=== PATIENT | female | born 1955 | race Caucasian/White ===

== ENCOUNTER 2017-02-15 17:32 | Emergency (ER) | payer OTHER ==
[~2017-02-15] VITALS: Wt 57.6 kg
[~2017-02-15 17:32] MED LIST: COMPAZINE10 MG PO; DARVOCET N PO; LEVOTHYROXIN0.088 M1 PO; NAPROSYN500 MG PO; PREDNICOT10 MG PO; SEPTRA DS 800 M1 TAB PO; SYNTHROID0.05 MG PO; ULTRAM50 MG PO; VENTOLIN H0.09 MG/AC INH; VIBRAMYCIN100 MG PO; VICODIN 500 MG-1 TAB PO
[2017-02-15 17:37] VITALS: BP 147/91
[2017-02-15] MEDS ORDERED: NORCO 5-325 TA1 EACH PO (18:47)
[2017-02-15] MEDS ORDERED: NAPROSYN500 MG PO (18:47)
[2017-02-15] MEDS ORDERED: CYCLOBENZAPRINE5 M3 PO (18:47)
== END 2017-02-15 19:21 | disposition home or self-care (01) ==
LOC: ED 17:32
DX: S16.1XXA Strain of muscle, fascia and tendon at neck level, initial encounter (principal); S30.0XXA Contusion of lower back and pelvis, initial encounter; Z98.51 Tubal ligation status; Z79.899 Other long term (current) drug therapy; Z88.1 Allergy status to other antibiotic agents; W10.8XXA Fall (on) (from) other stairs and steps, initial encounter; Y93.89 Activity, other specified; Y92.099 Unspecified place in other non-institutional residence as the place of occurrence of the external cause; Y99.9 Unspecified external cause status

== ENCOUNTER → 2017-09-26 | Outpatient (CLI) | payer OTHER ==
[~2017-09-26] MED LIST changes: +CYCLOBENZAPRINE5 M3 PO; +NORCO 5-325 TA1 EACH PO
== END | disposition home or self-care (01) ==
LOC: RAD 19:28
DX: M25.561 Pain in right knee (principal)

== ENCOUNTER → 2017-09-30 | Outpatient (CLI) | payer OTHER ==
[2017-10-01 15:11] LABS: ENDOMYSIAL ANTIBODY IgA Negative (Negative)
[2017-10-01 16:27] LABS: t-TRANSGLUTAMINASE (tTG) IGA <2 U/mL (0-3); t-TRANSGLUTAMINASE (tTG) IgG <2 U/mL (0-5)
[2017-10-07 18:04] LABS: FATS, NEUTRAL Normal (.); FATS, TOTAL Normal (.)
== END | disposition home or self-care (01) ==
LOC: LAB 14:08
DX: R19.7 Diarrhea, unspecified (principal)

== ENCOUNTER → 2017-10-08 | Outpatient (CLI) | payer OTHER | END | disposition home or self-care (01) | LOC: MAMMO 02:55 | DX: Z12.39 Encounter for other screening for malignant neoplasm of breast (principal) ==

== ENCOUNTER → 2019-02-23 | Outpatient (CLI) | payer OTHER | END | disposition home or self-care (01) | LOC: MAMMO 14:41 | DX: Z12.31 Encounter for screening mammogram for malignant neoplasm of breast (principal); N64.89 Other specified disorders of breast ==

== ENCOUNTER 2019-11-25 12:02 | Emergency (ER) | payer OTHER ==
[~2019-11-25] VITALS: Ht 154.9 cm; Wt 62.1 kg
[2019-11-25 12:10] VITALS: BP 188/90
[2019-11-25] MEDS ORDERED: PREDNISONE20 M1 PO (13:31)
== END 2019-11-25 15:13 | disposition home or self-care (01) ==
LOC: ED 12:02
DX: T63.441A Toxic effect of venom of bees, accidental (unintentional), initial encounter (principal); Z88.1 Allergy status to other antibiotic agents; Z79.899 Other long term (current) drug therapy; Y92.89 Other specified places as the place of occurrence of the external cause

== ENCOUNTER → 2020-11-02 | Outpatient (CLI) | payer OTHER ==
[~2020-11-02] MED LIST changes: +PREDNISONE20 M1 PO
== END | disposition home or self-care (01) ==
LOC: RAD 13:22
PROVIDERS: ATTEND Nurse Practitioner Family
DX: M25.552 Pain in left hip (principal)

== ENCOUNTER 2021-07-01 17:41 | Inpatient (IN) | payer OTHER ==
[~2021-07-01] VITALS: Ht 154.9 cm; Wt 62.1 kg
[2021-07-01 17:49] VITALS: BP 129/99
[2021-07-01] MEDS ORDERED: FLUOXETINE HCL40 MG PO (17:50)
[2021-07-01] MEDS ORDERED: OMEPRAZOLE MAGN20 MG PO (17:51)
[2021-07-01] MEDS ORDERED: LEVOTHYROXINE112 MCG PO (17:51)
[2021-07-01] MEDS ORDERED: DOXYCYCLINE HY100 M3 PO (17:52)
[2021-07-01] MEDS ORDERED: LOSARTAN-HCTZ1 EAC1 PO (17:52)
[2021-07-01 18:54] LABS: HEMATOCRIT 36.9 % (37.0-47.0); MEAN CELL VOLUME 84.6 fl (81.0-99.0); MEAN CORPUSCULAR HGB 29.6 pg (27.0-31.0); PLATELET COUNT AUTOMATED 381 10*3/uL (130-400); RED BLOOD COUNT 4.36 10*6/uL (4.10-5.10); RED CELL DISTRI WIDTH 13.4 % (0-14.5); WHITE BLOOD COUNT 16.3 10*3/uL (4.8-10.8)
[2021-07-01 18:56] LABS: MANUAL DIFF REFLEX YES
[2021-07-01 19:09] LABS: ACT PARTIAL THROMBO TIME 30.9 SECONDS (20.0-32.1); INTERNATIONAL NORM RATIO 1.1 (2.0-3.5)
[2021-07-01 19:20] LABS: PLATELET SUFFICIENCY NORMAL (NORMAL); TOTAL CELLS COUNTED 100 #CELLS
[2021-07-01 19:21] LABS: CREATININE 2.18 mg/dL (0.55-1.02); TOTAL PROTEIN 6.8 gm/dL (6.4-8.2)
[2021-07-01 19:54] LABS: THYROID STIM HORMONE (HS) 2.03 uIU/ml (0.358-4.75)
[2021-07-01 20:06] LABS: BILIRUBIN 1+ (Negative); BLOOD Trace-Lysed (Negative); CLARITY Turbid (Clear); COLOR Dark Yellow (Yellow); GLUCOSE Trace (Negative); KETONE Trace (Negative); LEUKO ESTERASE 1+ (Negative); NITRITE Negative (Negative)
[2021-07-01 20:22] LABS: BACTERIA 4+; EPITHELIAL CELLS 21-30
[2021-07-01 20:23] LABS: WBC 16-20 wbc/hpf (0-5)
[2021-07-01 21:52] VITALS: BP 119/72
[2021-07-02] VITALS: BP 110/50
[2021-07-02 04:18] LABS: BASO % 0.3 % (0.0-1.0); EOS # 0.1 10*3/uL (0.0-0.4); EOS % 0.9 % (1.0-4.0); HEMATOCRIT 36.6 % (37.0-47.0); LYMPH # 1.5 10*3/uL (1.3-4.4); LYMPH % 9.8 % (27.0-41.0); MEAN CELL VOLUME 87.4 fl (81.0-99.0); MEAN CORPUSCULAR HGB 30.1 pg (27.0-31.0); MEAN CORPUSCULAR HGB CONC 34.4 g/dl (33.0-37.0); MEAN PLATELET VOLUME 8.9 fl (9.6-12.3); MONO # 1.5 10*3/uL (0.1-1.0); MONO % 9.7 % (3.0-9.0); NEUT % 78.9 % (47.0-73.0); PLATELET COUNT AUTOMATED 299 10*3/uL (130-400); RED BLOOD COUNT 4.19 10*6/uL (4.10-5.10); RED CELL DISTRI WIDTH 13.6 % (0-14.5); WHITE BLOOD COUNT 15.2 10*3/uL (4.8-10.8)
[2021-07-02 04:30] LABS: CREATININE 2.46 mg/dL (0.55-1.02); POTASSIUM 2.5 mmol/L (3.5-5.1)
[2021-07-02 08:00] VITALS: BP 100/51
[2021-07-02 11:00] VITALS: BP 98/53
[2021-07-02 16:00] VITALS: BP 120/67
[2021-07-02 20:00] VITALS: BP 151/63
[2021-07-03] VITALS: BP 148/86
[2021-07-03 05:58] LABS: BASO % 0.3 % (0.0-1.0); EOS # 0.1 10*3/uL (0.0-0.4); EOS % 1.3 % (1.0-4.0); HEMATOCRIT 36.4 % (37.0-47.0); LYMPH # 1.8 10*3/uL (1.3-4.4); LYMPH % 17.2 % (27.0-41.0); MEAN CELL VOLUME 87.9 fl (81.0-99.0); MEAN CORPUSCULAR HGB 30.2 pg (27.0-31.0); MEAN CORPUSCULAR HGB CONC 34.3 g/dl (33.0-37.0); MEAN PLATELET VOLUME 9.3 fl (9.6-12.3); MONO # 0.9 10*3/uL (0.1-1.0); MONO % 8.9 % (3.0-9.0); NEUT # 7.5 10*3/uL (2.3-7.9); NEUT % 71.9 % (47.0-73.0); PLATELET COUNT AUTOMATED 340 10*3/uL (130-400); RED BLOOD COUNT 4.14 10*6/uL (4.10-5.10); RED CELL DISTRI WIDTH 13.6 % (0-14.5); WHITE BLOOD COUNT 10.4 10*3/uL (4.8-10.8)
[2021-07-03 06:02] LABS: CREATININE 1.58 mg/dL (0.55-1.02)
[2021-07-03 06:10] LABS: POTASSIUM 2.2 mmol/L (3.5-5.1)
[2021-07-03 08:00] VITALS: BP 132/74
[2021-07-03 12:00] VITALS: BP 97/54
[2021-07-03 12:06] LABS: CREATININE 1.63 mg/dL (0.55-1.02); POTASSIUM 2.7 mmol/L (3.5-5.1)
[2021-07-03 16:00] VITALS: BP 109/57; BP 123/65
[2021-07-03 20:00] VITALS: BP 96/56
[2021-07-04] VITALS: BP 121/79
[2021-07-04 06:12] LABS: BASO % 0.3 % (0.0-1.0); EOS # 0.2 10*3/uL (0.0-0.4); EOS % 2.2 % (1.0-4.0); HEMATOCRIT 34.1 % (37.0-47.0); LYMPH # 1.9 10*3/uL (1.3-4.4); LYMPH % 25.9 % (27.0-41.0); MEAN CELL VOLUME 88.1 fl (81.0-99.0); MEAN CORPUSCULAR HGB 29.7 pg (27.0-31.0); MEAN CORPUSCULAR HGB CONC 33.7 g/dl (33.0-37.0); MEAN PLATELET VOLUME 9.5 fl (9.6-12.3); MONO # 0.9 10*3/uL (0.1-1.0); MONO % 12.1 % (3.0-9.0); NEUT # 4.4 10*3/uL (2.3-7.9); NEUT % 59.4 % (47.0-73.0); PLATELET COUNT AUTOMATED 334 10*3/uL (130-400); RED BLOOD COUNT 3.87 10*6/uL (4.10-5.10); RED CELL DISTRI WIDTH 13.5 % (0-14.5); WHITE BLOOD COUNT 7.4 10*3/uL (4.8-10.8)
[2021-07-04 06:22] LABS: CREATININE 1.31 mg/dL (0.55-1.02)
[2021-07-04 06:51] LABS: POTASSIUM 4.2 mmol/L (3.5-5.1)
[2021-07-04 08:00] VITALS: BP 151/75
[2021-07-04 12:00] VITALS: BP 116/86
== END 2021-07-04 15:56 | disposition home or self-care (01) | DRG 463 ==
LOC: ED 17:41 → 5E 21:03 → EDHOLD 21:03 → 5E 21:22
PROVIDERS: Emergency Medicine; Family Medicine; Hospitalist; Internal Medicine; Internal Medicine Nephrology; Student in an Organized Health Care Education/Training Program; ADMIT Internal Medicine; ATTEND Internal Medicine
DX: N39.0 Urinary tract infection, site not specified (principal); E43 Unspecified severe protein-calorie malnutrition; N17.0 Acute kidney failure with tubular necrosis; E87.1 Hypo-osmolality and hyponatremia; K27.9 Peptic ulcer, site unspecified, unspecified as acute or chronic, without hemorrhage or perforation; R31.9 Hematuria, unspecified; R73.9 Hyperglycemia, unspecified; N18.4 Chronic kidney disease, stage 4 (severe); E83.42 Hypomagnesemia; F32.A Depression, unspecified; E03.9 Hypothyroidism, unspecified; E87.6 Hypokalemia; F17.210 Nicotine dependence, cigarettes, uncomplicated; I12.9 Hypertensive chronic kidney disease with stage 1 through stage 4 chronic kidney disease, or unspecified chronic kidney disease; Z82.49 Family history of ischemic heart disease and other diseases of the circulatory system; Z82.5 Family history of asthma and other chronic lower respiratory diseases; Z71.6 Tobacco abuse counseling; Z88.1 Allergy status to other antibiotic agents; Z88.8 Allergy status to other drugs, medicaments and biological substances; Z79.899 Other long term (current) drug therapy; Z79.51 Long term (current) use of inhaled steroids; Z68.25 Body mass index [BMI] 25.0-25.9, adult

== ENCOUNTER 2021-08-16 11:52 | Inpatient (IN) | payer OTHER ==
[~2021-08-16] VITALS: Ht 154.9 cm; Wt 62.6 kg
[~2021-08-16 11:52] MED LIST changes: +DOXYCYCLINE HY100 M3 PO; +FLUOXETINE HCL40 MG PO; +LEVOTHYROXINE112 MCG PO; +LOSARTAN-HCTZ1 EAC1 PO; +OMEPRAZOLE MAGN20 MG PO
[2021-08-16 12:01] VITALS: BP 113/76
[2021-08-16 12:28] LABS: BASO % 0.2 % (0.0-1.0); EOS # 0.1 10*3/uL (0.0-0.4); EOS % 0.9 % (1.0-4.0); LYMPH # 1.9 10*3/uL (1.3-4.4); LYMPH % 17.1 % (27.0-41.0); MEAN CELL VOLUME 87.4 fl (81.0-99.0); MEAN CORPUSCULAR HGB 30.1 pg (27.0-31.0); MEAN CORPUSCULAR HGB CONC 34.5 g/dl (33.0-37.0); MONO # 1.2 10*3/uL (0.1-1.0); MONO % 11.2 % (3.0-9.0); NEUT # 7.6 10*3/uL (2.3-7.9); NEUT % 70.1 % (47.0-73.0); PLATELET COUNT AUTOMATED 365 10*3/uL (130-400); RED BLOOD COUNT 4.35 10*6/uL (4.10-5.10); RED CELL DISTRI WIDTH 14.4 % (0-14.5); WHITE BLOOD COUNT 10.9 10*3/uL (4.8-10.8)
[2021-08-16 12:47] LABS: ALKALINE PHOSPHATASE 77 U/L (45-117); BUN 11 mg/dl (7-24); CHLORIDE 106 mmol/L (98-107); CREATININE 1.07 mg/dL (0.55-1.02); LIPASE 210 U/L (73-393); POTASSIUM 2.6 mmol/L (3.5-5.1); SGOT/AST 15 IU/L (3-35); SGPT/ALT 20 U/L (12-78); SODIUM 141 mmol/L (136-145); TOTAL PROTEIN 6.8 gm/dL (6.4-8.2)
[2021-08-16 14:00] VITALS: BP 114/76
[2021-08-16 14:05] LABS: BILIRUBIN Negative (Negative); BLOOD Negative (Negative); CLARITY Clear (Clear); COLOR Yellow (Yellow); GLUCOSE Negative (Negative); KETONE Negative (Negative); LEUKO ESTERASE Negative (Negative); NITRITE Negative (Negative); UROBILINOGEN 0.2 E.U./dl (0.0-1.0)
[2021-08-16 14:25] LABS: BACTERIA 1+; EPITHELIAL CELLS 31-40; RBC 0-2 rbc/hpf (0-2); WBC 0-2 wbc/hpf (0-5)
[2021-08-16 16:10] VITALS: BP 112/74
[2021-08-16 18:14] VITALS: BP 112/74
[2021-08-16 18:38] VITALS: BP 141/94
[2021-08-16] MEDS ORDERED: LOSARTAN POTASS25 M1 PO (18:53)
[2021-08-16] MEDS ORDERED: AMLODIPINE BESYL5 MG PO (18:53)
[2021-08-16 19:53] LABS: BUN 9 mg/dl (7-24); CHLORIDE 111 mmol/L (98-107); CREATININE 0.87 mg/dL (0.55-1.02); SODIUM 143 mmol/L (136-145)
[2021-08-16 20:00] VITALS: BP 141/94
[2021-08-17] VITALS: BP 95/42
[2021-08-17 01:04] LABS: BUN 8 mg/dl (7-24); CHLORIDE 108 mmol/L (98-107); CREATININE 0.89 mg/dL (0.55-1.02); POTASSIUM 3.1 mmol/L (3.5-5.1); SODIUM 140 mmol/L (136-145)
[2021-08-17 06:12] LABS: BASO % 0.3 % (0.0-1.0); EOS # 0.1 10*3/uL (0.0-0.4); EOS % 1.5 % (1.0-4.0); HEMATOCRIT 34.2 % (37.0-47.0); LYMPH # 1.8 10*3/uL (1.3-4.4); LYMPH % 23.8 % (27.0-41.0); MEAN CELL VOLUME 89.3 fl (81.0-99.0); MEAN CORPUSCULAR HGB CONC 33.6 g/dl (33.0-37.0); MEAN PLATELET VOLUME 9.6 fl (9.6-12.3); MONO # 0.8 10*3/uL (0.1-1.0); MONO % 10.7 % (3.0-9.0); NEUT # 4.8 10*3/uL (2.3-7.9); NEUT % 63.4 % (47.0-73.0); PLATELET COUNT AUTOMATED 338 10*3/uL (130-400); RED BLOOD COUNT 3.83 10*6/uL (4.10-5.10); RED CELL DISTRI WIDTH 14.5 % (0-14.5); WHITE BLOOD COUNT 7.5 10*3/uL (4.8-10.8)
[2021-08-17 06:16] LABS: ALKALINE PHOSPHATASE 68 U/L (45-117); BUN 7 mg/dl (7-24); CHLORIDE 109 mmol/L (98-107); CREATININE 0.89 mg/dL (0.55-1.02); POTASSIUM 2.8 mmol/L (3.5-5.1); SGOT/AST 16 IU/L (3-35); SGPT/ALT 17 U/L (12-78); SODIUM 140 mmol/L (136-145); TOTAL PROTEIN 5.9 gm/dL (6.4-8.2)
[2021-08-17 08:00] VITALS: BP 100/74
[2021-08-17 12:00] VITALS: BP 100/80
[2021-08-17 16:00] VITALS: BP 142/72
[2021-08-17 16:03] LABS: BUN 8 mg/dl (7-24); CHLORIDE 110 mmol/L (98-107); CREATININE 0.91 mg/dL (0.55-1.02); POTASSIUM 3.5 mmol/L (3.5-5.1); SODIUM 140 mmol/L (136-145)
== END 2021-08-17 18:31 | disposition home or self-care (01) | DRG 469 ==
LOC: ED 11:52 → 4E 14:06 → EDHOLD 14:06 → 4E 18:12
PROVIDERS: Internal Medicine; Physician Assistant; ADMIT Internal Medicine; ATTEND Internal Medicine
DX: N17.0 Acute kidney failure with tubular necrosis (principal); E87.8 Other disorders of electrolyte and fluid balance, not elsewhere classified; E83.51 Hypocalcemia; F17.210 Nicotine dependence, cigarettes, uncomplicated; E44.0 Moderate protein-calorie malnutrition; K27.9 Peptic ulcer, site unspecified, unspecified as acute or chronic, without hemorrhage or perforation; E83.42 Hypomagnesemia; E87.6 Hypokalemia; R73.9 Hyperglycemia, unspecified; I10 Essential (primary) hypertension; F32.A Depression, unspecified; E03.9 Hypothyroidism, unspecified; M54.32 Sciatica, left side; I44.0 Atrioventricular block, first degree; Z68.26 Body mass index [BMI] 26.0-26.9, adult; Z71.6 Tobacco abuse counseling; Z88.1 Allergy status to other antibiotic agents; Z88.8 Allergy status to other drugs, medicaments and biological substances; Z79.51 Long term (current) use of inhaled steroids; Z79.899 Other long term (current) drug therapy

== ENCOUNTER → 2021-10-01 | Outpatient (CLI) | payer OTHER ==
[~2021-10-01] MED LIST changes: +AMLODIPINE BESYL5 MG PO; +LOSARTAN POTASS25 M1 PO
== END | disposition home or self-care (01) ==
LOC: MAMMO 09-13 10:00
PROVIDERS: ATTEND Nurse Practitioner Family
DX: Z12.31 Encounter for screening mammogram for malignant neoplasm of breast (principal)

== ENCOUNTER 2021-10-10 22:17 | Emergency (ER) | payer OTHER ==
[~2021-10-10] VITALS: Ht 160 cm; Wt 59.0 kg
[2021-10-10 22:29] VITALS: BP 163/91
[2021-10-10] MEDS ORDERED: PERCOCET 5-3251 EACH PO (22:49)
[2021-10-10] MEDS ORDERED: ANTIBIOTIC28.4 GM T (22:49)
== END 2021-10-10 22:47 | disposition home or self-care (01) ==
LOC: ED 22:17
DX: T23.132A Burn of first degree of multiple left fingers (nail), not including thumb, initial encounter (principal); F12.90 Cannabis use, unspecified, uncomplicated; Z98.51 Tubal ligation status; Z79.899 Other long term (current) drug therapy; Z88.1 Allergy status to other antibiotic agents; X13.1XXA Other contact with steam and other hot vapors, initial encounter; Y93.89 Activity, other specified; Y92.89 Other specified places as the place of occurrence of the external cause; Y99.9 Unspecified external cause status

== ENCOUNTER 2021-10-17 18:27 | Emergency (ER) | payer OTHER ==
[~2021-10-17 18:27] MED LIST changes: +ANTIBIOTIC28.4 GM T; +PERCOCET 5-3251 EACH PO
[2021-10-17 18:48] VITALS: BP 148/78
== END 2021-10-17 22:35 | disposition home or self-care (01) ==
LOC: ED 18:27
DX: S40.011A Contusion of right shoulder, initial encounter (principal); S70.01XA Contusion of right hip, initial encounter; S80.01XA Contusion of right knee, initial encounter; M25.421 Effusion, right elbow; F12.90 Cannabis use, unspecified, uncomplicated; Z98.890 Other specified postprocedural states; Z98.51 Tubal ligation status; Z79.899 Other long term (current) drug therapy; Z88.1 Allergy status to other antibiotic agents; W01.198A Fall on same level from slipping, tripping and stumbling with subsequent striking against other object, initial encounter; Y93.01 Activity, walking, marching and hiking; Y92.89 Other specified places as the place of occurrence of the external cause; Y99.9 Unspecified external cause status

== ENCOUNTER 2022-02-20 16:46 | Emergency (ER) | payer OTHER ==
[~2022-02-20] VITALS: Ht 154.9 cm; Wt 63.5 kg
[2022-02-20 17:31] VITALS: BP 89/64
[2022-02-20 18:05] LABS: BASO % 0.3 % (0.0-1.0); EOS % 0.3 % (1.0-4.0); HEMATOCRIT 36.6 % (37.0-47.0); LYMPH # 1.8 10*3/uL (1.3-4.4); LYMPH % 15.2 % (27.0-41.0); MEAN CELL VOLUME 88.8 fl (81.0-99.0); MEAN CORPUSCULAR HGB 29.9 pg (27.0-31.0); MEAN CORPUSCULAR HGB CONC 33.6 g/dl (33.0-37.0); MEAN PLATELET VOLUME 9.7 fl (9.6-12.3); MONO # 1.3 10*3/uL (0.1-1.0); MONO % 11.2 % (3.0-9.0); NEUT # 8.5 10*3/uL (2.3-7.9); NEUT % 72.7 % (47.0-73.0); PLATELET COUNT AUTOMATED 332 10*3/uL (130-400); RED BLOOD COUNT 4.12 10*6/uL (4.10-5.10); RED CELL DISTRI WIDTH 13.3 % (0-14.5); WHITE BLOOD COUNT 11.7 10*3/uL (4.8-10.8)
[2022-02-20 18:28] LABS: ALKALINE PHOSPHATASE 73 U/L (46-116); BUN 14 mg/dl (9-23); CHLORIDE 97 mmol/L (98-107); CREATININE 1.09 mg/dL (0.55-1.02); LIPASE 39 U/L (12-53); POTASSIUM 2.8 mmol/L (3.4-5.1); SGPT/ALT 14 U/L (10-49); SODIUM 132 mmol/L (136-145); TOTAL PROTEIN 6.8 gm/dL (6.0-8.0)
[2022-02-20 21:32] LABS: BILIRUBIN Negative (Negative); BLOOD Negative (Negative); CLARITY Clear (Clear); COLOR Yellow (Yellow); GLUCOSE Negative (Negative); KETONE Negative (Negative); LEUKO ESTERASE Trace (Negative); NITRITE Negative (Negative); PH 5.5 (4.5-8.0); SPECIFIC GRAVITY 1.015 (1.001-1.030)
[2022-02-20 22:02] LABS: BACTERIA TRACE
[2022-02-20] MEDS ORDERED: K-TAB20 MEQ PO (22:28)
[2022-02-20] MEDS ORDERED: PEPCID20 MG PO (22:28)
[2022-02-20] MEDS ORDERED: TOPCARE OMEPRAZ20 MG PO (22:28)
[2022-02-20] MEDS ORDERED: MACROBID100 M1 PO (22:39)
== END 2022-02-20 22:17 | disposition home or self-care (01) ==
LOC: ED 16:46
PROVIDERS: Physician Assistant
DX: K29.70 Gastritis, unspecified, without bleeding (principal); E87.6 Hypokalemia; Z79.899 Other long term (current) drug therapy; Z88.1 Allergy status to other antibiotic agents

== ENCOUNTER → 2023-06-10 | Outpatient (CLI) | payer MEDICARE ==
[~2023-06-10] MED LIST changes: +ADULT MULTIVI200 MCG PO; +K-TAB20 MEQ PO; +LEVOFLOXACIN750 M2 PO; +LEVOTHYROXINE125 MCG PO; +MACROBID100 M1 PO; +MAGNESIUM OXID400 MG PO; +MUCINEX1200 M1 PO; +OMEPRAZOLE40 MG PO; +PEPCID20 MG PO; +POTASSIUM CHLO10 MEQ PO; +PREDNISONE10 MG PO; +SYMB160 INH; +TOPCARE OMEPRAZ20 MG PO
== END | disposition home or self-care (01) ==
LOC: RAD 17:09
PROVIDERS: ATTEND Nurse Practitioner Family
DX: J98.4 Other disorders of lung (principal); R09.89 Other specified symptoms and signs involving the circulatory and respiratory systems; R05.9 Cough, unspecified; R06.02 Shortness of breath; M47.814 Spondylosis without myelopathy or radiculopathy, thoracic region; F17.210 Nicotine dependence, cigarettes, uncomplicated; Z87.09 Personal history of other diseases of the respiratory system

== ENCOUNTER 2023-10-29 16:27 | Emergency (ER) | payer MEDICARE ==
[~2023-10-29] VITALS: Ht 157.4 cm; Wt 74.8 kg
[2023-10-29] MEDS ORDERED: methylPREDNISolone sod succ 125 MG VIAL IM ONE (17:00)
[2023-10-29] MEDS ORDERED: Ketorolac Tromethamine 30 MG/ML VIAL IM ONE (17:00)
[2023-10-29 17:29] LABS: HEMATOCRIT 48.9 % (37.0-47.0); MEAN CELL VOLUME 90.2 fl (81.0-99.0); MEAN CORPUSCULAR HGB 29.7 pg (27.0-31.0); MEAN CORPUSCULAR HGB CONC 32.9 g/dl (33.0-37.0); MEAN PLATELET VOLUME 8.9 fl (9.6-12.3); PLATELET COUNT AUTOMATED 301 10*3/uL (130-400); RED BLOOD COUNT 5.42 10*6/uL (4.10-5.10); RED CELL DISTRI WIDTH 14.6 % (0-14.5); WHITE BLOOD COUNT 15.8 10*3/uL (4.8-10.8)
[2023-10-29 17:32] LABS: MANUAL DIFF REFLEX YES
[2023-10-29 17:44] LABS: POTASSIUM 3.5 mmol/L (3.4-5.1)
[2023-10-29 17:54] LABS: BASOPHILS 1 % (0-1); PLATELET SUFFICIENCY NORMAL (NORMAL); TOTAL CELLS COUNTED 100 #CELLS
[2023-10-29 18:54] VITALS: BP 130/77
[2023-10-29 19:05] LABS: BILIRUBIN Negative (Negative); BLOOD Negative (Negative); CLARITY Clear (Clear); COLOR Yellow (Yellow); GLUCOSE Negative (Negative); KETONE Trace (Negative); LEUKO ESTERASE Negative (Negative); NITRITE Negative (Negative); UROBILINOGEN 0.2 E.U./dl (0.0-1.0)
[2023-10-29 19:21] LABS: EPITHELIAL CELLS 0-2; WBC 0-2 wbc/hpf (0-5)
[2023-10-29] MEDS ORDERED: PREDNISONE50 MG PO (19:51)
== END 2023-10-29 19:54 | disposition home or self-care (01) ==
LOC: ED 16:27
PROVIDERS: Physician Assistant Medical
DX: J06.9 Acute upper respiratory infection, unspecified (principal); M54.9 Dorsalgia, unspecified; F17.200 Nicotine dependence, unspecified, uncomplicated; Z88.1 Allergy status to other antibiotic agents; Z79.899 Other long term (current) drug therapy; Z79.2 Long term (current) use of antibiotics; Z98.890 Other specified postprocedural states; Z98.51 Tubal ligation status